=== PATIENT | male | born 1985 | race Caucasian/White ===

== ENCOUNTER → 2019-07-01 16:15 | Outpatient (CLI) | payer OTHER, SELFPAY ==
--- NOTE | ~2019-07-01 | CT_ITS ---
EXAMINATION: CT chest wo con DATE: 07/01/2019 16:32 INDICATION: Solitary pulmonary nodule TECHNIQUE: Computed tomography (CT) of the chest was performed without intravenous contrast. The dose -length product (DLP) was 101.51 mGy-cm. Automated exposure control and iterative reconstruction tech nique were employed. COMPARISON: None FINDINGS: There are a few 1 to 2 mm nodules in the lungs. No suspicious pulmonary nodule is identifie d. There is no pleural effusion or pneumothorax. The lungs are free of acute opacities. No pathologic ally enlarged thoracic lymph nodes are identified. The heart size is normal. The visualized osseous s tructures are unremarkable. Triangular soft tissue density of the anterior mediastinum has the appear ance of residual thymus. IMPRESSION: 1. Scattered 1 to 2 mm nodules of the lungs, likely old granulomatous disease. In the absence of know n risk factors, no further follow-up is necessary. Reviewed, dictated and finalized at location A. [employer] IMPRESSION: 1. Scattered 1 to 2 mm nodules of the lungs, likely old granulomatous disease. In the absence of known risk factors, no further follow-up is necessary.
== END ==
PROVIDERS: PCP Family Medicine; Visit Provider Physician Assistant Medical
DX: R91.8 Other nonspecific abnormal finding of lung field (principal); R31.0 Gross hematuria
CPT/HCPCS: 71250